=== PATIENT | male | born 1955 | race African-American/Black ===

== ENCOUNTER 2018-08-07 23:20 | Emergency (ER) | payer OTHER ==
[~2018-08-07] VITALS: Ht 160 cm; Wt 76.4 kg
[2018-08-07] MEDS ORDERED: IV NORMAL SALINE 1,000ML 1,000 ML IV ONE (23:30)
--- NOTE | 2018-08-07 23:40 | RAD ---
PQRS Compliance statement: One or more of the following individualized dose reduction techniques were utilized for this examination: 1. Automated exposure control. 2. Adjustment of the mA and/or kV according to patient size. 3. Use of iterative reconstruction technique. Indication:Right sided weakness, altered mental status, unable to hold head straight TECHNIQUE: CT head without IV contrast COMPARISON:None FINDINGS: No pathologic extra-axial or intra-axial fluid collection. The ventricles and basal cisterns are within normal limits. No acute intracranial bleed. No focal loss of rea-white differentiation. Orbits are within normal limits. No suspicious calvarial lesion. The visualized paranasal sinuses and mastoid air cells are clear. IMPRESSION: Suboptimal positioning. No acute intracranial bleed. If concern for acute ischemic stroke is high, please consider MRI brain. Critical findings were identified on 08/07/2018 11:31 PM, read back and verified with Dr. Phillips on 08/07/2018 11:[address] Emir Beaz DO. Electronically signed by: Emir Baez DO (08/07/2018 11:35 PM) [facility]
[2018-08-07 23:44] LABS: BASO # 0.1 x10^3/uL (0.0-0.2); BASO % 2 % (0-3); EOS # 0.3 x10^3/uL (0.0-0.7); EOS % 6 % (0-3); HEMATOCRIT 43.3 % (39.0-53.0); HEMOGLOBIN 14.7 g/dL (13.0-17.5); LYMPH # 2.1 x10^3/uL (1.0-4.8); LYMPH % 38 % (24-48); MEAN CORPUSCULAR HEMOGLOBIN 30 pg (25-35); MEAN CORPUSCULAR HGB CONC 34 g/dL (31-37); MEAN CORPUSCULAR VOLUME 88 fL (79-100); MONO # 0.9 x10^3/uL (0.0-1.1); MONO % 16 % (0-9); NEUT % 38 % (31-73); PLATELET COUNT 247 x10^3/uL (140-400); RED CELL DISTRIBUTION WIDTH 14.2 % (11.5-14.5); WHITE BLOOD COUNT 5.4 x10^3/uL (4.0-11.0)
--- NOTE | 2018-08-07 23:46 | PHYS DOC ---
Past History Additional Past Medical Histor: gastritis Past Medical History Limited due to patient's current condition. Additional Past Surgical Histo: Beau Fundoplication with multiple revisions Past Surgical History Limited due to patient's current condition. Smoking: Non-smoker Alcohol Use: None Drug Use: None Social History Limited due to patient's current condition. Adult General Chief Complaint Chief Complaint: SEIZURE HPI HPI 63-year-old male presents via EMS with report of being found unresponsive on his couch prior to arrival.. Spouse reports last known well approximately 1 hour prior to arrival (around 2230). Denies report of known headache or trauma. Denies history of prior seizure or stroke. EMS concerned for possible stroke. Code stroke called in route. EMS reports patient seemed to be "posturing" with his left hand and bilateral legs. Reports concern that his right arm was not moving and patient nonverbal. HPI limited due to patient's current status. Review of Systems Review of Systems GI: Denies nausea, vomiting Integument: Denies laceration Neurologic: Altered mental status, "posturing of left arm" ROS limited due to patient's current condition. Current Medications Current Medications Current Medications Medications (Trade) Dose Ordered Sig/Alli Start Time Stop Time Status Last Admin Dose Admin Lorazepam (Ativan) 1 mg 1X ONCE 08/07/18 23:45 08/07/18 23:46 UNV Sodium Chloride 1,000 ml @ 1,000 mls/hr 1X ONCE 08/07/18 23:30 08/08/18 00:29 UNV Physical Exam Physical Exam Constitutional: Well developed, not following commands, appears rigid HENT: Normocephalic, atraumatic, bilateral TMs normal, oropharynx moist, nose normal. [] Eyes: PERRL but sluggish, forced gaze to left, conjunctiva normal, no discharge. [] Neck: Supple, no swelling Cardiovascular: Heart rate regular rhythm, no murmur [] Lungs & Thorax: Bilateral breath sounds clear to auscultation [] Abdomen: Soft, no tenderness Skin: Warm, dry, no erythema, no rash, no lacerations Extremities: No cyanosis, no edema, BLE rigid with full plantar flexion. Neurologic: GCS 12, patient with full plantar flexion to BLE, Arms with bilateral full extension and flexion of finger to fists Psychologic: Unable to obtain due to current condition. EKG EKG @2341 NSR at 81bpm with baseline artifact, NO ST elevation, QRS 84ms, QT/QTc 380/442ms Radiology/Procedures Radiology/Procedures PROCEDURE: CT CODE STROKE HEAD WO PQRS Compliance statement: One or more of the following individualized dose reduction techniques were utilized for this examination: 1. Automated exposure control. 2. Adjustment of the mA and/or kV according to patient size. 3. Use of iterative reconstruction technique. Indication:Right sided weakness, altered mental status, unable to hold head straight TECHNIQUE: CT head without IV contrast COMPARISON:None FINDINGS: No pathologic extra-axial or intra-axial fluid collection. The ventricles and basal cisterns are within normal limits. No acute intracranial bleed. No focal loss of rea-white differentiation. Orbits are within normal limits. No suspicious calvarial lesion. The visualized paranasal sinuses and mastoid air cells are clear. IMPRESSION: Suboptimal positioning. No acute intracranial bleed. If concern for acute ischemic stroke is high, please consider MRI brain. Critical findings were identified on 08/07/2018 11:31 PM, read back and verified with Dr. Ruth on 08/07/2018 11:[address] Emir Baez DO. Electronically signed by: Emir Baez DO (08/07/2018 11:35 PM) [facility] PROCEDURE: CT ANGIOGRAPHY HEAD AND NECK INDICATION: Omni 350 75cc: Altered mental status, rigid body, unresponsive COMPARISON: CT head earlier same day TECHNIQUE: Axial CT images obtained through the head and neck arterial vasculature with intravenous contrast with three-dimensional images processed. Estimates of carotid stenosis based on criteria that correlate with NASCET.. One or more of the following individualized dose reduction techniques were utilized for this examination: 1. Automated exposure control; 2. Adjustment of the mA and/or kV according to patient size; 3. Use of iterative reconstruction technique. FINDINGS: Neck angiography: The left vertebral artery is very small in size therefore difficult to evaluate but it does appear patent. Right vertebral artery is also small in size which makes evaluation limited but does appear patent within the neck. Left common carotid artery is patent with small amount of plaque seen at the bulb. Left internal carotid artery is patent as well as proximal left external carotid artery. Right internal carotid artery is patent. There is some plaque at the right carotid bulb. Proximal right external carotid artery is patent. Right common carotid patent. Proximal right external carotid patent. Portion right common carotid artery at the neck base is obscured by motion. Brain angiography: Basilar artery is small in size and appears grossly patent. Cerebellar vessels are not well evaluated given the small size. Proximal posterior cerebral arteries are patent with the distal vessels not well evaluated secondary to small size. There is a occlusion at the origin of the left middle cerebral artery. Proximal right middle cerebral artery patent and distal vessels not well evaluated given small size. Small vessel is seen within the right anterior cerebral artery territory without vascularity seen in the left anterior cerebral artery territory. Other findings: There is inadequate contrast within the dural venous sinuses to evaluate for dural thrombus. Degenerative changes throughout the spine with multilevel central canal neural foraminal stenosis. Mild groundglass opacities at lung apices. Could be from causes such as hypoventilatory changes, mild edema or small airway inflammation. Heterogeneity of the thyroid. Thyroid nodules are possible given this finding. IMPRESSION: 1. 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 There is some suspected early loss of rea-white matter differentiation which could be from early edema. 2. There is some vascularity seen within the right anterior cerebral artery territory however on the left definite vessels are not seen therefore there could be an additional thrombus within the left anterior cerebral artery proximally. Report was called to the emergency department at 1:41 AM on date of exam 3. 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 Electronically signed by: Gregg Interiano MD (08/08/2018 2:21 AM) [facility] Impressions: CXR AP #1: (preliminary interpretation by ED physician): no acute process CXR AP #2 (preliminary interpretation by ED physician): interval ETT placed approximately 2cm from caterina CXR AP #3 (preliminary interpretation by ED physician): interval OGT placement in gastric fundus Course & Med Decision Making Course & Med Decision Making Pertinent Labs and Imaging studies reviewed. (See chart for details) Patient presents via EMS with concern for possible acute stroke. Last known well approximately 1 hour prior to arrival. EMS reports concern for possible "posturing" of left arm and patient unresponsive to painful and verbal stimuli. Patient sent immediately to CT imaging. NO acute hemorrhage noted. Patient with more seizure-like activity. Ativan continued to be given intermittently. Keppra bolus also given. Unable to obtain NIHSS as patient very rigid to BLE and arms. Did seem to have intermittent improvement but never able to verbalize or follow commands. Discussed case with Dr. Sims (neurologist) who is in agreement with plan for seizure control but also in agreement cannot fully exclude stroke and therefore requests CTA brain/carotid. ASA given PA. Patient with continued posturing and deviation of eyes to left. Decision to protect airway given continued activity. ETT placed after RSI with etomidate 20mg and Rocuronium 50mg. 7.5 ETT placed. CXR in good position. CTA results with left proximal MCA occlusion and possible left YUMIKO occlusion. TPA bolus/ gtt given. Patient requiring interventional neurology evaluation. Family requesting [facility]. Utilized [facility] transfer line. Discussed with Dr. Stone ( internal medicine) and Dr. Jett (neurology) who are in agreement with transfer to [facility]. Radiological images sent to [facility]. Discussed findings and plan with family, who acknowledge understanding and agreement. Dragon Disclaimer Dragon Disclaimer This electronic medical record was generated, in whole or in part, using a voice recognition dictation system. Intubation Intubation : Intubation Method: orotracheal Tube Size (cm): 7.5 (24cm at teeth) Breath Sounds after Intubation: equal Intubation Complications: no complications Post Intubation Xray: Yes Progress/Xray Impression: 2cm above caterina in good position Progress Intubation with Dean #3 after 20mg Etomidate and 50mg Rocuronium. Bougie utilized. Departure Departure: Impression: Primary Impression: Acute CVA (cerebrovascular accident) Disposition: 05 XFER OTHER ([facility] for Interventional Neurology evaluation) Condition: CRITICAL Critical Care Time Critical care time was 30 minutes which includes time at bedside, spent in discussion of patient's care with specialists and/or family members, with interpretation of laboratory and/or radiological studies and is exclusive of procedures. SHAY RUTH DO Aug 07, 2018 23:46
--- NOTE | 2018-08-07 23:48 | EKG ---
[address] [address] Test Date: 2018-08-07 Test Time: 23:41:11 Pat Name: GISEL MASSEY Department: Room: Gender: M Financial Aid Officer: : 1955 Requested By: SHAY RUTH Order Number: [id number] Reading MD: Toby Vogt Measurements Intervals [place]red Rate: 81 P: DC: QRS: -1 QRSD: 84 T: 22 QT: 380 QTc: 442 Interpretive Statements SINUS RHYTHM LEFTWARD AXIS Electronically Signed On 08-20-2018 14:41:44 WARP KNITTER by Toby Vogt
[2018-08-07 23:58] LABS: ALBUMIN 3.7 g/dL (3.4-5.0); CALCIUM 8.5 mg/dL (8.5-10.1); CREATININE 1.1 mg/dL (0.7-1.3); GFR 68.1; MAGNESIUM 2.2 mg/dL (1.8-2.4); POTASSIUM 4.3 mmol/L (3.5-5.1); TOTAL BILIRUBIN 0.3 mg/dL (0.2-1.0); TOTAL PROTEIN 7.3 g/dL (6.4-8.2)
[2018-08-08] MEDS ORDERED: levETIRAcetam 500 MG/5 ML VIAL IV ONE (00:15)
[2018-08-08] MEDS ORDERED: IV NORMAL SALINE 100ML 100 ML ONE (00:15)
[2018-08-08] MEDS ORDERED: ASPIRIN 325 MG TABLET ONE (00:30)
[2018-08-08] MEDS ORDERED: ASPIRIN RECTAL 300 MG SUPP. PR ONE (00:45)
[2018-08-08] MEDS ORDERED: CONTRAST GIVEN MC PRN (00:45)
[2018-08-08] MEDS ORDERED: IOHEXOL 350 MG/ML 100 ML VIAL. IV ONE (01:00)
[2018-08-08 01:57] LABS: BARBITURATES NEG (NEG); BENZODIAZEPINES NEG (NEG); CANNABINOIDS NEG (NEG); COCAINE NEG (NEG); METHADONE NEG (NEG); OPIATES NEG (NEG); PHENCYCLIDINE NEG (NEG)
[2018-08-08] MEDS ORDERED: PROPOFOL 100 ML IV PRN (02:00)
[2018-08-08] MEDS ORDERED: ETOMIDATE 40 MG/20 ML VIAL. IV ONE (02:00)
[2018-08-08] MEDS ORDERED: ROCURONIUM 50 MG/5 ML VIAL. IV ONE (02:00)
[2018-08-08 02:02] LABS: BILIRUBIN,URINE NEG (NEG); CLARITY,URINE CLEAR; COLOR,URINE YELLOW; GLUCOSE,URINE NEG (NEG)
[2018-08-08] MEDS ORDERED: ALTEPLASE 100 MG IV ONE (02:02)
[2018-08-08 02:03] LABS: BACTERIA,URINE 0 /HPF (0-FEW); NITRITE,URINE NEG (NEG); RBC,URINE OCC /HPF (0-2); SQUAMOUS EPITHELIAL CELL,UR OCC /LPF; UROBILINOGEN,URINE 0.2 mg/dL (0.2 mg/dL); WBC,URINE 0 /HPF (0-4)
[2018-08-08 02:09] LABS: AMPHETAMINE/METHAMPHETAMINE NEG (NEG)
--- NOTE | 2018-08-08 02:25 | RAD ---
INDICATION: Omni 350 75cc: Altered mental status, rigid body, unresponsive COMPARISON: CT head earlier same day TECHNIQUE: Axial CT images obtained through the head and neck arterial vasculature with intravenous contrast with three-dimensional images processed. Estimates of carotid stenosis based on criteria that correlate with NASCET.. One or more of the following individualized dose reduction techniques were utilized for this examination: 1. Automated exposure control; 2. Adjustment of the mA and/or kV according to patient size; 3. Use of iterative reconstruction technique. FINDINGS: Neck angiography: The left vertebral artery is very small in size therefore difficult to evaluate but it does appear patent. Right vertebral artery is also small in size which makes evaluation limited but does appear patent within the neck. Left common carotid artery is patent with small amount of plaque seen at the bulb. Left internal carotid artery is patent as well as proximal left external carotid artery. Right internal carotid artery is patent. There is some plaque at the right carotid bulb. Proximal right external carotid artery is patent. Right common carotid patent. Proximal right external carotid patent. Portion right common carotid artery at the neck base is obscured by motion. Brain angiography: Basilar artery is small in size and appears grossly patent. Cerebellar vessels are not well evaluated given the small size. Proximal posterior cerebral arteries are patent with the distal vessels not well evaluated secondary to small size. There is a occlusion at the origin of the left middle cerebral artery. Proximal right middle cerebral artery patent and distal vessels not well evaluated given small size. Small vessel is seen within the right anterior cerebral artery territory without vascularity seen in the left anterior cerebral artery territory. Other findings: There is inadequate contrast within the dural venous sinuses to evaluate for dural thrombus. Degenerative changes throughout the spine with multilevel central canal neural foraminal stenosis. Mild groundglass opacities at lung apices. Could be from causes such as hypoventilatory changes, mild edema or small airway inflammation. Heterogeneity of the thyroid. Thyroid nodules are possible given this finding. IMPRESSION: 1. 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 There is some suspected early loss of rea-white matter differentiation which could be from early edema. 2. There is some vascularity seen within the right anterior cerebral artery territory however on the left definite vessels are not seen therefore there could be an additional thrombus within the left anterior cerebral artery proximally. Report was called to the emergency department at 1:41 AM on date of exam 3. 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 Electronically signed by: Gregg Interiano MD (08/08/2018 2:21 AM) [facility]
[2018-08-08] MEDS ORDERED: ALTEPLASE 62 MG IV SCH (02:30)
[2018-08-08] MEDS ORDERED: ALTEPLASE 6.9 MG IV ONE (02:30)
[2018-08-08] MEDS ORDERED: ERYTHROMYCIN 0.5% OPHTH OINTMENT 1GM TUBE. ONE (02:59)
[2018-08-08] MEDS ORDERED: ERYTHROMYCIN 0.5% OPHTH OINTMENT 1GM TUBE. OU ONE (03:15)
[2018-08-08 03:30] VITALS: BP 121/90
[2018-08-08] MEDS ORDERED: IV NORMAL SALINE 50ML 50 ML IV ONE (03:30)
[2018-08-08] MEDS ORDERED: IV NORMAL SALINE 1,000ML 1,000 ML IV ONE (03:30)
--- NOTE | 2018-08-08 07:17 | EKG ---
[address] [address] Test Date: 2018-08-07 Test Time: 23:41:11 Pat Name: GISEL MASSEY Department: Room: Gender: M Welder Experimental: : 1955 Requested By: SHAY RUTH Order Number: [id number] Reading MD: Toby Vogt Measurements Intervals [place] Rate: 81 P: LA: QRS: -1 QRSD: 84 T: 22 QT: 380 QTc: 442 Interpretive Statements SINUS RHYTHM LEFTWARD AXIS Electronically Signed On 08-20-2018 14:41:28 COLOR STRIPPER by Toby Vogt
--- NOTE | 2018-08-08 08:21 | RAD ---
Portable chest, 08/08/2018, 2:41 AM: HISTORY: Check tube placements, stroke Comparison is made to the study of earlier the same day at 1:18 AM. The ET tube tip lies well above the caterina. An NG tube extends into the body of the stomach. The heart size and pulmonary vascularity are within normal limits. There are persistent streaky bibasilar opacities suggesting moderate atelectasis/infiltrate. There is no evidence of pleural fluid or pneumothorax. A left eighth rib defect is presumably postsurgical. Surgical clips are present in the left upper quadrant of the abdomen. IMPRESSION: 1. The ET tube and NG tube are in satisfactory positions. 2. Ongoing moderate streaky bibasilar atelectasis/infiltrate. Electronically signed by: Alejo Lambert MD (08/08/2018 8:16 AM) [facility]
--- NOTE | 2018-08-08 11:39 | RAD ---
CHEST AP ONLY Clinical Indication: Altered mental status, code stroke, heavy breathing Comparison: None. Findings: The cardiomediastinal silhouette is normal. Lungs are clear. There is no pneumothorax. No pleural effusion is appreciated. No acute bone abnormality. Small partial resection of left posterior eighth rib. IMPRESSION: No acute cardiopulmonary process. Electronically signed by: Arnulfo Lorenzo MD (08/08/2018 8:09 AM) [id number] [id number]
--- NOTE | 2018-08-08 11:40 | RAD ---
CHEST AP supine ONLY Clinical Indication: s/p intubation Comparison: AP chest, prior day. Findings: There is endotracheal tube, tip is 2.8 cm superior to the caterina. The cardiomediastinal silhouette is normal. There are new bibasilar linear opacities that are probably discoid atelectasis. There is no pneumothorax. No pleural effusion is appreciated. Bones appear stable. Surgical clips left upper abdomen. There is air in the stomach. IMPRESSION: 1. Endotracheal tube tip is 2.8 cm superior to the caterina. 2. New bibasilar linear opacities are probably discoid atelectasis. Electronically signed by: Arnulfo Lorenzo MD (08/08/2018 8:11 AM) [id number] MTDD
== END 2018-08-08 03:40 | disposition short-term general hospital (02) ==
LOC: ER 23:20
DX: I63.9 Cerebral infarction, unspecified (principal); R40.4 Transient alteration of awareness; G81.91 Hemiplegia, unspecified affecting right dominant side
CPT/HCPCS: 36415; 37195; 43752; 51702; 70450; 70496; 70498; 71045; 80053; 80307; 81001; 82553; 82947; 83605; 83735; 84484; 85025; 85610; 85730; 93005; 96374; 96375; 96376; 99285; G0480; J1953; J2060; J2704; J2997; J3010; Q9967; 94002; 99291-25; J7030